=== PATIENT | male | born 1950 | race Two or more races ===

== ENCOUNTER 2019-09-27 11:54 | Inpatient (IN) | payer OTHER, MEDICAID ==
[~2019-09-27] VITALS: Ht 177.8 cm; Wt 74.4 kg
--- NOTE | 2019-09-27 12:00 | NUR ---
PT CAME FROM SNF, SENT BY PMD FOR POSSIBLE R SHOULDER DISCLOCATION. PT ALERT AND AWAKE, VSS, NO ACUTE DISTRESS NOTED. PT CONNECTED TO THE MONITOR AND POX.
[2019-09-27] MEDS ORDERED: PROPOFOL 20 ML IV ONE (12:33)
--- NOTE | 2019-09-27 12:45 | NUR ---
DR TOMLINSON, RT, RN, TECH AT BEDSIDE IN PREPARATION FOR THE PROCEDURE (R SHOULDER CLOSED REDUCTION UNDER MODERATE SEDATION. INFORMED CONSENT OBTAINED.
--- NOTE | 2019-09-27 12:48 | NUR ---
POST PROCEDURAL VITAL SIGNS 111/58 BP HR 63 BPM 21 RR 97% O2. 98.1 TEMP
--- NOTE | 2019-09-27 12:48 | NUR ---
EKG AT BEDSIDE
[2019-09-27] MEDS ORDERED: PROPOFOL 200 MG/20 ML VIAL IV ONE (13:00)
[2019-09-27 13:01] LABS: BASOPHILS # (AUTO) 0.1 /CMM (0.0-0.2); BASOPHILS % (AUTO) 0.7 % (0.0-2.0); EOSINOPHILS % (AUTO) 2.8 % (0.0-6.0); HEMATOCRIT 35 % (39-51); HEMOGLOBIN 11.5 g/dL (13.5-17.5); MEAN CORPUSCULAR HGB CONC 33 g/dl (31.0-36.0); MEAN CORPUSCULAR VOLUME 93 fL (80-96); MONOCYTES # (AUTO) 0.9 /CMM (0.1-1.30); MONOCYTES % (AUTO) 8.8 % (2.0-12.0); NEUTROPHILS # (AUTO) 6.8 /CMM (1.8-8.9); NEUTROPHILS % (AUTO) 67.7 % (43.0-81.0); PLATELET COUNT (AUTO) 236 /CMM (150-450); RED BLOOD CELL COUNT(AUTO) 3.71 MIL/uL (4.5-6.0)
[2019-09-27] MEDS ORDERED: ALBU2.5V38 IH ×2 (13:07)
[2019-09-27] MEDS ORDERED: ACET325T53 GT (13:07)
[2019-09-27] MEDS ORDERED: ACET-73 GT (13:07)
[2019-09-27] MEDS ORDERED: DEXT15DR6 RIGHTEYE (13:07)
[2019-09-27 13:10] LABS: CALCIUM, SERUM 8.6 mg/dL (8.5-10.1); CREATININE 0.7 mg/dL (0.6-1.3); POTASSIUM 3.8 mmol/L (3.5-5.1)
[2019-09-27] MEDS ORDERED: DULO30CA2 GT (13:11)
[2019-09-27] MEDS ORDERED: CARV25TA2 GT (13:11)
[2019-09-27] MEDS ORDERED: DOCU50LI GT (13:11)
[2019-09-27] MEDS ORDERED: CHLO473M3 BC (13:11)
[2019-09-27] MEDS ORDERED: CLOP75TA15 GT (13:11)
[2019-09-27] MEDS ORDERED: BISA10SU11 RC (13:12)
--- NOTE | 2019-09-27 13:13 | NUR ---
PT ALERT AND AWAKE. VITAL SIGNS STABLE. BREATHING EVEN AND UNLABORED W/ NO ACUTE DISTRESS NOTED.
[2019-09-27] MEDS ORDERED: OMEG-105 GT (13:14)
[2019-09-27] MEDS ORDERED: FAMO20TA8 GT (13:14)
[2019-09-27] MEDS ORDERED: NA P133E RC (13:14)
[2019-09-27] MEDS ORDERED: INSU100V39 SQ (13:20)
[2019-09-27] MEDS ORDERED: LEVE100S2 GT (13:20)
[2019-09-27] MEDS ORDERED: NUTR1PAC14 GT (13:20)
[2019-09-27] MEDS ORDERED: INSU3INS9 SQ (13:20)
[2019-09-27] MEDS ORDERED: MULT9LIQ6 PO (13:24)
[2019-09-27] MEDS ORDERED: LISI-603 GT (13:24)
[2019-09-27] MEDS ORDERED: ASCO-310 GT (13:27)
[2019-09-27] MEDS ORDERED: MAGN2400 GT (13:27)
[2019-09-27] MEDS ORDERED: SPIR25TA6 GT (13:27)
[2019-09-27] MEDS ORDERED: OXYC-128 GT (13:27)
[2019-09-27] MEDS ORDERED: AMIN30LI27 GT (13:27)
[2019-09-27] MEDS ORDERED: ASCO-340 (13:27)
[2019-09-27] MEDS ORDERED: LANSOPRAZOLE SUSP GT (13:30)
--- NOTE | 2019-09-27 14:22 | NUR ---
NURSING SUP GAVE 315-2.
[2019-09-27] MEDS ORDERED: [UNRECOGNIZED DRUG - REMARK] GT (14:27)
[2019-09-27] MEDS ORDERED: MAG HYDROX/AL HYDROX/SIMETH 30 ML UDC PO PRN (14:30)
[2019-09-27] MEDS ORDERED: ACETAMINOPHEN 325 MG TABLET PO PRN (14:30)
[2019-09-27] MEDS ORDERED: Z GUARD REMEDY 2 OZ OINT TP PRN (14:30)
[2019-09-27] MEDS ORDERED: MAGNESIUM HYDROXIDE 30 ML UDC PO PRN (14:30)
[2019-09-27] MEDS ORDERED: HYDROCODONE/APAP 5/325MG 1 EACH TABLET PO PRN (14:30)
[2019-09-27] MEDS ORDERED: NA PHOS,M-B/NA PHOS,DI-BA 1 EA ENEMA RC SCH (14:30)
[2019-09-27] MEDS ORDERED: DEXTROSE 50%-WATER 50 ML DISP.SYRIN IV PRN (14:30)
[2019-09-27] MEDS ORDERED: ONDANSETRON HCL/PF 4 MG/2 ML VIAL IVP PRN (14:30)
[2019-09-27] MEDS ORDERED: BISACODYL SUPP (10 MG) 10 MG/SUPP.RECT SUPP.RECT RC SCH (14:30)
--- NOTE | 2019-09-27 14:36 | NUR ---
REPORT GIVEN TO KAMAR WATSON
[2019-09-27] MEDS ORDERED: BISACODYL SUPP (10 MG) 10 MG/SUPP.RECT SUPP.RECT RC PRN (14:50)
[2019-09-27] MEDS ORDERED: NA PHOS,M-B/NA PHOS,DI-BA 1 EA ENEMA RC PRN (14:50)
[2019-09-27] MEDS ORDERED: MAGNESIUM HYDROXIDE 30 ML UDC GT PRN (14:56)
[2019-09-27] MEDS ORDERED: MAG HYDROX/AL HYDROX/SIMETH 30 ML UDC GT PRN (14:56)
[2019-09-27] MEDS: PROSOURCE / PROSTAT (PYXIS) 30 ML UDC GT SCH (15:00)
[2019-09-27] MEDS ORDERED: ACETAMINOPHEN 650 MG/20.3 ML UDC GT PRN (15:00)
--- NOTE | 2019-09-27 15:42 | NUR ---
PT TRANSFERRED TO BED 314-2 IN STABLE CONDITION
[2019-09-27 16:00] VITALS: BP 133/71
--- NOTE | 2019-09-27 16:00 | NUR ---
ADMISSION NOTE PT WAS BROUGHT UP AT THIS TIME VIA GURNEY, AWAKE AND ALERT BUT NONVERBAL BUT ABLE TO NOD HEAD TO QUESTIONS, NOTED TO HAVE TRACH PROTEX 7 AND GTUBE SITE, LEFT WRIST IV IS PATENT AND INTACT, SKIN NOTED TO BE DRY AND INTACT WITH GTUBE SITE AND TRACH SITE ALSO DRY AND INTACT, PT IS BREATHING EVEN AND UNLABORED AND CURRENTLY ON 2L TO THE TRACH AND SATING AT 97%, NO S/S OF ANY DISTRESS OR PAIN AT THIS TIME, PT NOTED TO BE NONAMBULATORY AND ONLY ABLE TO NOD HEAD, SAFETY PRECAUTIONS IN PLACE, CALL LIGHT IN REACH, WILL MONITOR ACCORDINGLY.
[2019-09-27] MEDS ORDERED: ARGININE/GLUTAMINE/CALCIUM BMB 1 EACH POWD.PACK GT SCH (17:00)
[2019-09-27] MEDS ORDERED: ALBUTEROL FS 2.5 MG/3 ML VIAL.NEB IH PRN (17:00)
[2019-09-27] MEDS: CHLORHEXIDINE GLUCONATE 15 ML UDC MM SCH (17:14)
[2019-09-27] MEDS: LEVETIRACETAM SOL (5 ML) 100 MG/ML UDC GT SCH (17:15)
[2019-09-27] MEDS: LISINOPRIL (20MG) 20 MG TABLET GT SCH (17:15)
[2019-09-27] MEDS: FAMOTIDINE (20 MG) 20 MG TABLET GT SCH (17:15)
[2019-09-27] MEDS: DOCUSATE SODIUM LIQ 100 MG/10 ML UDC GT SCH (17:15)
[2019-09-27] MEDS: BLOOD SUGAR DIAGNOSTIC 1 EACH STRIP IN SCH ×2 (17:37→22:27)
[2019-09-27] MEDS: INSULIN REGULAR, HUMAN 100 UNIT/ML 3 ML VIAL SQ PRN (17:38)
[2019-09-27] MEDS: ALBUTEROL FS 2.5 MG/3 ML VIAL.NEB IH SCH ×2 (18:00→23:26)
--- NOTE | 2019-09-27 18:37 | NUR ---
RN CLOSING NOTE PT IN BED AT LOWEST AND LOCKED POSITION WITH SIDE RAILS UP X2, AWAKE AND ALERT NONVERBAL BUT NODS HEAD TO ANSWER QUESTION, BREATHING EVEN AND UNLABORED VIA TRACH ON 2L VIA NC, NO S/S OF ANY PAIN OR DISTRESS AT THIS TIME, IV IS PATENT AND INTACT, RIGHT ARM IN SLING DUE TO SHOULDER DISLOCATION, GTUBE IS PATENT AND INTACT WITH MINIMAL RESIDUAL OF 20 ML, PALN FOR SHOULDER REDUCTION WITH ORTHO, SAFETY PRECAUTIONS IN PLACE, CALL LIGHT IN REACH, WILL ENDORSE TO NIGHT RN FOR SUJEY.
--- NOTE | 2019-09-27 19:50 | NUR ---
RN OPENING NOTES RECEIVED REPORT FROM LAURYN COSTA. Pt WAS JUST ADMITTED TODAY DURING THE DAY FROM [facility]. Pt IS HERE DUE TO RT SHOULDER DISLOCATION. Pt HAS A TACH; PORTEX #7. Pt IS NONVERBAL, BUT IS AWAKE AND ALERT ENOUGH TO ANSWER YES OR NO QUESTIONS BY NODDING. Pt IS GEORGIAN SPEAKING ONLY. IV ACCESS ON LWRIST #18G, SL. PEG TUBE IN PLACE, CLAMPED. CURRENTLY NPO PER ADMITTING ORDERS. WAITING FOR ORTHO CONSULT FOR Pt. SAFETY MEASURES IN PLACE. BED LOW, LOCKED, HOB ELEVATED, & SIDE RAILS UP. WILL CONTINUE TO MONITOR Pt's CONDITION AND SAFETY THROUGHOUT THE NIGHT.
[2019-09-27 20:00] VITALS: BP 148/77
[2019-09-27] MEDS ORDERED: NUT.250L18 PO (20:36)
--- NOTE | 2019-09-27 21:00 | NUR ---
EDMUND DAVILA (DAUGHTER): CELL - [place] -
[2019-09-27] MEDS: MORPHINE SULFATE INJ 2 MG/ML DISP.SYRIN IV PRN (21:13)
[2019-09-27] MEDS: INSULIN GLARGINE, 100 UNIT/ML CARTRIDGE SQ SCH (22:00)
--- NOTE | 2019-09-27 22:00 | NUR ---
RN NOTES PER ADMITTING HOSPITALIST, JOSUÉ HUFFMAN, Pt's GTF WAS HELD AND PLACED NPO FOR NOW, BUT DID NOT EXPLAIN IN HIS H&P WHY Pt WAS PLACED NPO. PER CXR RESULT THERE IS A "MILD DISTENTION ON THE UPPER ABD'L BOWEL LOOPS. IF THERE IS CONCERN FOR BOWEL OBSTRUCTION, CONSIDER ABD'L SERIES." INFORMED PM SQUAD LEADER HOSPITALIST RHIANNA CONNER, OF THE RESULTS, SAID TO KEEP Pt NPO FOR NOW. NO FURTHER TESTS ORDERED AT THIS TIME. WILL CONTINUE TO MONITOR.
--- NOTE | 2019-09-27 22:34 | NUR ---
RN NOTES BG 217. Pt IS CURRENTLY NPO. NO INSULIN ADMINISTERED AT THIS TIME.
--- NOTE | 2019-09-27 23:25 | NUR ---
NO ENDORSEMENT GIVEN ABOUT PATIENT DURING SHIFT CHANGE. Addendum: 09/27/19 at 0775 by SOLITARIO SINGER RT Amended: Links added.
--- NOTE | 2019-09-27 23:35 | NUR ---
RN NOTES PLACED Pt ON COOL AEROSOL 28%
[2019-09-28] MEDS: MORPHINE SULFATE INJ 2 MG/ML DISP.SYRIN IV PRN ×4 (01:22→22:15)
[2019-09-28] MEDS: ALBUTEROL FS 2.5 MG/3 ML VIAL.NEB IH SCH ×3 (05:24→18:13)
--- NOTE | 2019-09-28 06:15 | NUR ---
RN NOTES RT SUGGESTED TO DO ABG ON Pt DUE TO Pt's LOW 02 SATURATION EVEN AFTER DOING SUCTIONING AND BREATHING TREATMENT AND INCREASING COOL AEROSOL TO 40%, Pt WAS ONLY SATING HIGHEST AT 90%. INFORMED FANCY PACKER DALILA, SAID OK TO PLACE STAT ABG ON Pt. WILL CARRY OUT ORDER. RT AT BEDSIDE READY FOR ABG DRAW.
[2019-09-28] MEDS: BLOOD SUGAR DIAGNOSTIC 1 EACH STRIP IN SCH ×4 (06:33→22:11)
[2019-09-28 06:36] LABS: ABG BASE EXCESS 2.4 mmol/L; ABG OXYGEN SATURATION 97.1 % (92.0-98.5); ABG PCO2 30.2 mmHg (35.0-45.0); ABG PH 7.527 (7.350-7.450); ABG PO2 88.3 mmHg (75.0-100.0); AaDO2 162.2 mmHg; COHb 0.9 % (0.5-1.5); MetHb 0.4 % (0.0-1.5); O2Hb 95.8 % (94.0-97.0); SITE, ABG Left Radial; VENT MODE, BG COOL AEROSOL 40%
--- NOTE | 2019-09-28 06:37 | NUR ---
RN NOTES BG 213. NO INSULIN COVERAGE GIVEN AT THIS TIME DUE TO Pt BEING NPO STATUS.
--- NOTE | 2019-09-28 06:52 | NUR ---
RN CLOSING NOTES NO OTHER CHANGES IN Pt's CONDITION. ABG RESULTS SHOWED NOTHING CRITICAL. pCO2 30.2L & ABG pH 7.527H. Pt REMAINS ON COOL AEROSOL 40% O2 SAT @91%. ALL NEEDS MET AND ATTENDED TO. SAFETY MEASURES IN PLACE. PENDING ORTHO CONSULT TODAY. Pt IS RESTING COMFORTABLY IN BED. NO SIGNS OF PAIN NOTED. RT SLING ON RT ARM IN PLACE. WILL ENDORSE TO DAYSHIFT RN FOR Pt's SUJEY.
[2019-09-28 06:55] LABS: BASOPHILS % (AUTO) 0.2 % (0.0-2.0); EOSINOPHILS % (AUTO) 0.7 % (0.0-6.0); HEMATOCRIT 36 % (39-51); HEMOGLOBIN 11.8 g/dL (13.5-17.5); LYMPHOCYTES # (AUTO) 1.6 /CMM (0.8-4.8); LYMPHOCYTES % (AUTO) 11.2 % (20.0-44.0); MEAN CORPUSCULAR HGB CONC 33 g/dl (31.0-36.0); MEAN CORPUSCULAR VOLUME 93 fL (80-96); MONOCYTES % (AUTO) 6.6 % (2.0-12.0); NEUTROPHILS # (AUTO) 11.7 /CMM (1.8-8.9); NEUTROPHILS % (AUTO) 81.3 % (43.0-81.0); PLATELET COUNT (AUTO) 260 /CMM (150-450); RED BLOOD CELL COUNT(AUTO) 3.87 MIL/uL (4.5-6.0); WHITE BLOOD COUNT (AUTO) 14.5 K/uL (4.3-11.0)
--- NOTE | 2019-09-28 06:57 | NUR ---
PATIENT RECEIVED LATE ADMISSION AND PLACED ON 28% AEROSOL T-TUBE. SUCTIONED FOR MODERATE, THIN, YELLOW SECRETIONS. GIVEN IN-LINE TREATMENTS WITH NO ADVERSE REACTIONS. INCREASED FiO2 TO 40% DUE TO LOW SaO2. ABG OBTAINED AND RELAYED RESULTS TO RN. Addendum: 09/28/19 at 0659 by SOLITARIO SINGER RT Amended: Links added.
[2019-09-28 07:07] LABS: THYROID STIMULATING HORMONE 8.809 uIU/mL (0.358-3.74)
[2019-09-28 07:26] LABS: CREATININE 0.7 mg/dL (0.6-1.3); PHOSPHORUS 3.4 mg/dL (2.5-4.9); POTASSIUM 4.4 mmol/L (3.5-5.1)
--- NOTE | 2019-09-28 07:30 | NUR ---
RN OPENING NOTES RECEIVED PATIENT IN BED RESTING AWAKE. NON VERBAL, TRACKS WITH EYES, NODS HEAD TO YES OR NO, LANGUAGE IS LITHUANIAN. TRACH PORTEX7 WITH T-PIECE AEROSOL. NOT IN ANY FORM OF DISTRESS. NO SOB. NO S/S OF PAIN OR DISCOMFORT. GTUBE IN PLACE, CLAMP. IV ACCESS INTACT AND PATENT. KEPT PATIENT SAFE AND COMFORTBALE. BED IN LOW/LOCKED POSITION, SIDERAILS UPX2, CALL LIGHT IN REACH. WILL CONTINUE TO MONIOTR ACCORIDNGLY.
[2019-09-28 08:00] VITALS: BP 112/60
[2019-09-28] MEDS ORDERED: EPA GT SCH (09:00)
[2019-09-28] MEDS ORDERED: D3 GT SCH (09:00)
[2019-09-28] MEDS ORDERED: OMEGA GT SCH (09:00)
[2019-09-28] MEDS ORDERED: DHA GT SCH (09:00)
[2019-09-28] MEDS ORDERED: FISH OIL GT SCH (09:00)
[2019-09-28] MEDS ORDERED: [UNRECOGNIZED DRUG - OTHER] GT SCH (09:00)
[2019-09-28] MEDS: DULOXETINE HCL 30 MG CAPSULE.DR GT SCH (10:09)
[2019-09-28] MEDS: FAMOTIDINE (20 MG) 20 MG TABLET GT SCH ×2 (10:10→17:05)
[2019-09-28] MEDS: PANTOPRAZOLE 40 MG/PACK PACK GT SCH (10:10)
[2019-09-28] MEDS: SPIRONOLACTONE 25 MG TABLET GT SCH (10:10)
[2019-09-28] MEDS: CLOPIDOGREL BISULFATE 75 MG TABLET GT SCH (10:10)
[2019-09-28] MEDS: MULTIVIT W/MINERALS 1 TAB TABLET GT SCH (10:10)
[2019-09-28] MEDS: CARVEDILOL 12.5 MG TABLET GT SCH (10:11)
[2019-09-28] MEDS: LISINOPRIL (20MG) 20 MG TABLET GT SCH ×2 (10:12→17:06)
[2019-09-28] MEDS: ASCORBIC ACID 500 MG TABLET GT SCH (10:12)
[2019-09-28] MEDS: CHLORHEXIDINE GLUCONATE 15 ML UDC MM SCH ×2 (10:13→17:05)
[2019-09-28] MEDS: DOCUSATE SODIUM LIQ 100 MG/10 ML UDC GT SCH ×2 (10:13→17:07)
[2019-09-28] MEDS: LEVETIRACETAM SOL (5 ML) 100 MG/ML UDC GT SCH ×2 (10:13→17:06)
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
[2019-09-28] MEDS: PROSOURCE / PROSTAT (PYXIS) 30 ML UDC GT SCH (11:34)
--- NOTE | 2019-09-28 13:00 | NUR ---
RN NOTES CONSULTED WITH DERMATOLOGY SPECIALIST REGARDING TUBE FEEDING FORMULA. DIABETISOURCE 1.2 WAS USED IN LONG TERM. PER DERMATOLOGY SPECIALIST, GLUCERNA 1.2 IS THE SUBSTITUTE.
[2019-09-28 13:03] LABS: APPEARANCE,URINE CLOUDY (CLEAR); COLOR,URINE YELLOW (YELLOW); PROTEIN,URINE 30 mg/dl (NEGATIVE)
[2019-09-28 13:04] LABS: UGLUCOSE NEGATIVE (NEGATIVE)
[2019-09-28 13:05] LABS: BILIRUBIN,URINE SMALL (NEGATIVE); BLOOD, URINE SMALL Ery/uL (NEGATIVE)
[2019-09-28 13:06] LABS: KETONES,URINE TRACE (NEGATIVE); LEUKOCYTE ESTERASE ,URINE LARGE (NEGATIVE); NITRITE, URINE NEGATIVE (NEGATIVE)
[2019-09-28 13:15] LABS: BACTERIA,URINE Few /HPF (None Seen); SQUAMOUS EPITHELIAL CELL,UR Few /HPF (None Seen); WBC,URINE TOO NUMEROUS TO COUN /HPF (0-3)
[2019-09-28] MEDS: INSULIN REGULAR, HUMAN 100 UNIT/ML 3 ML VIAL SQ PRN ×3 (14:38→22:43)
[2019-09-28] MEDS: GLUCERNA 1.2 1,000 ML BOTTLE GT PRN (14:42)
[2019-09-28] MEDS ORDERED: CEFTRIAXONE 1 G in IV D5W 50 ML IV SCH (15:00)
[2019-09-28 16:12] VITALS: BP 137/66
--- NOTE | 2019-09-28 18:44 | NUR ---
RN CLOSING NOTES PATIENT IN STABLE CONDITION. NO SIGNIFICANT CHANGE OF CONDITION DURING THE SHIFT. ALL NEEDS ATTENDED AND PROVIDED. ALL DUE MEDS GIVEN ORDERED. TURNED AND REPOSITIONED PATIENT EVERY 2HRS NEEDED. SUCTIONED PATIENT'S TRACH NEEDED, TRACH CARE DONE. MOUTH CARE DONE. ON GTF AT 60ML/HR, FEEDING TOLERATING WELL WITH 5ML RESIDUAL. KEPT PATIENT CLEAN AND DRY. SAFETY MEASURES IN PLACE. WILL ENDORSED TO NIGHT RN FOR SUJEY.
--- NOTE | 2019-09-28 19:40 | NUR ---
RN OPENING NOTES RECEIVED REPORT FROM LAURYN GRAYSON. RT SHOULDER REDUCTION WAS NOT DONE TODAY, MOST LIKELY WILL BE DONE TOMORROW. Pt HAS A TACH; PORTEX #7 ON COL AEROSOL 40%. Pt IS NONVERBAL, BUT IS AWAKE AND ALERT ENOUGH TO ANSWER YES OR NO QUESTIONS BY NODDING. Pt IS CHILEAN SPEAKING BUT UNDERSTANDS SOME ROMANIAN. IV ACCESS ON LWRIST #18G, SL. PEG TUBE IN PLACE, GTF ON GLUCERNA 1.2 @60ML/HR X20HR. SAFETY MEASURES IN PLACE. BED LOW, LOCKED, HOB ELEVATED, & SIDE RAILS UP. WILL CONTINUE TO MONITOR Pt's CONDITION AND SAFETY THROUGHOUT THE NIGHT.
[2019-09-28 20:17] VITALS: BP 122/63
[2019-09-28] MEDS: INSULIN GLARGINE, 100 UNIT/ML CARTRIDGE SQ SCH (22:20)
--- NOTE | 2019-09-28 22:30 | NUR ---
RN NOTES BG 236. ADMINISTERED SCHEDULED LANTUS 25UN & 4UN OF REGULAR INSULIN PER SLIDING SCALE. Pt IS ON GTF.
[2019-09-29] MEDS: ALBUTEROL FS 2.5 MG/3 ML VIAL.NEB IH SCH ×5 (00:09→19:21)
[2019-09-29] MEDS: BLOOD SUGAR DIAGNOSTIC 1 EACH STRIP IN SCH ×4 (06:33→22:16)
[2019-09-29] MEDS: INSULIN REGULAR, HUMAN 100 UNIT/ML 3 ML VIAL SQ PRN ×4 (06:37→22:34)
--- NOTE | 2019-09-29 06:40 | NUR ---
RN NOTES AC ACCUCHECK BG 230. ADMINISTERED 4UN OF INSULIN PER SLIDING SCALE. ON GTF.
--- NOTE | 2019-09-29 06:50 | NUR ---
RN CLOSING NOTES NO SIGNIFICANT CHANGES IN Pt's CONDITION. ALL NEEDS MET AND ATTENDED TO. SAFETY MEASURES IN PLACE. Pt ON COOL AEROSOL 40% O2SAT @94%. Pt TOLERATING GTF WELL; RESIDUAL OF 10ML. GTUBE FLUSHED & PATENT. NO S/S OF ACUTE DISTRESS OR SOB NOTED DURING THE NIGHT. WILL ENDORSE TO DAYSHIFT RN FOR Pt's SUJEY.
--- NOTE | 2019-09-29 07:20 | NUR ---
MS RN OPENING NOTES RECEIVED PT IN BED, AWAKE. A/O X1, NON-VERBAL, BUT PT CAN TRACKS AND NODS WITH YES OR NO. PT HAS TRACH PORTEX7 ON COOL AEROSOL 40%, WITH NO ACUTE RESPIRATORY DISTRESS NOTED. PT DENIES ANY PAIN OR DISCOMFORT AT THIS TIME. ALSO DENIES CONCERNS OR QUESTIONS AT THIS MOMENT. PIV TO LFA G22, FLUSHED WITH NS, INTACT AND OPERATIONAL. PT KEPT COMFORTABLE. CALL LIGHT KEPT WITHIN REACH. HOB KEPT ELEVATED. PT'S BED IN LOWEST, LOCKED POSITION WITH SR X3. WILL CONTINUE TO PLAN OF CARE.
[2019-09-29 07:22] LABS: BASOPHILS % (AUTO) 0.3 % (0.0-2.0); EOSINOPHILS % (AUTO) 2.5 % (0.0-6.0); HEMATOCRIT 34 % (39-51); HEMOGLOBIN 11.2 g/dL (13.5-17.5); LYMPHOCYTES # (AUTO) 1.7 /CMM (0.8-4.8); MEAN CORPUSCULAR HGB CONC 33 g/dl (31.0-36.0); MEAN CORPUSCULAR VOLUME 93 fL (80-96); MONOCYTES # (AUTO) 0.9 /CMM (0.1-1.30); MONOCYTES % (AUTO) 6.9 % (2.0-12.0); NEUTROPHILS # (AUTO) 10.4 /CMM (1.8-8.9); NEUTROPHILS % (AUTO) 77.3 % (43.0-81.0); PLATELET COUNT (AUTO) 249 /CMM (150-450); RED BLOOD CELL COUNT(AUTO) 3.65 MIL/uL (4.5-6.0); WHITE BLOOD COUNT (AUTO) 13.5 K/uL (4.3-11.0)
--- NOTE | 2019-09-29 07:25 | NUR ---
RN NOTES IV ON LWRIST DISLODGED. STARTED NEW IV ACCESS ON LFA #22G.
[2019-09-29 07:50] LABS: CALCIUM, SERUM 8.7 mg/dL (8.5-10.1); CREATININE 0.8 mg/dL (0.6-1.3); POTASSIUM 4.2 mmol/L (3.5-5.1)
[2019-09-29 08:00] VITALS: BP 137/71
[2019-09-29] MEDS: CHLORHEXIDINE GLUCONATE 15 ML UDC MM SCH ×2 (08:52→17:42)
[2019-09-29] MEDS: DULOXETINE HCL 30 MG CAPSULE.DR GT SCH (08:53)
[2019-09-29] MEDS: DOCUSATE SODIUM LIQ 100 MG/10 ML UDC GT SCH ×2 (08:53→17:41)
[2019-09-29] MEDS: LEVETIRACETAM SOL (5 ML) 100 MG/ML UDC GT SCH ×2 (08:53→17:41)
[2019-09-29] MEDS: CARVEDILOL 12.5 MG TABLET GT SCH (08:53)
[2019-09-29] MEDS: ASCORBIC ACID 500 MG TABLET GT SCH (08:53)
[2019-09-29] MEDS: FAMOTIDINE (20 MG) 20 MG TABLET GT SCH ×2 (08:53→17:41)
[2019-09-29] MEDS: MULTIVIT W/MINERALS 1 TAB TABLET GT SCH (08:54)
[2019-09-29] MEDS: LISINOPRIL (20MG) 20 MG TABLET GT SCH ×2 (08:54→17:00)
[2019-09-29] MEDS: PANTOPRAZOLE 40 MG/PACK PACK GT SCH (08:54)
[2019-09-29] MEDS: SPIRONOLACTONE 25 MG TABLET GT SCH (08:54)
[2019-09-29] MEDS: CLOPIDOGREL BISULFATE 75 MG TABLET GT SCH (08:54)
[2019-09-29] MEDS: PROSOURCE / PROSTAT (PYXIS) 30 ML UDC GT SCH (08:54)
[2019-09-29] MEDS ORDERED: FEE PK DOSING 1 MIN EA MC ONE (11:09)
[2019-09-29] MEDS: VANCOMYCIN 1 GM in IV D5W 250 ML IV SCH ×2 (12:41→19:58)
[2019-09-29] MEDS: GLUCERNA 1.2 1,000 ML BOTTLE GT PRN (13:13)
[2019-09-29] MEDS: CEFEPIME 2 GM in IV D5W 100 ML IV SCH ×2 (13:57→21:09)
[2019-09-29 15:57] VITALS: BP 98/52
--- NOTE | 2019-09-29 16:20 | NUR ---
MS RN NOTES HOSPITALIST/CN MADE AWARE OF FAMILY'S REQUEST FOR DISCHARGE TODAY. RN AND CN/ODIN EXPLAINED TO THE INSISTING DAUGHTER THE REASON WHY PT NEEDS TO STAY FOR ANOTHER DAY. AWAITING FOR HOSPITALIST/CN'S RESPONSE.
--- NOTE | 2019-09-29 17:20 | NUR ---
MS RN NOTES FAMILY PRESENT AT BEDSIDE WITH SURPRISE REPUBLICAN FOR THE PT.
--- NOTE | 2019-09-29 18:43 | NUR ---
MS RN CLOSING NOTES PT IN BED, AWAKE. A/O X1, NON-VERBAL, BUT PT CAN TRACKS AND NODS WITH YES OR NO. PT HAS TRACH PORTEX7 ON COOL AEROSOL 40%, WITH NO ACUTE RESPIRATORY DISTRESS NOTED. PT DENIES ANY PAIN OR DISCOMFORT AT THIS TIME. PIV TO LFA G22, FLUSHED WITH NS, INTACT AND OPERATIONAL. ALL NEEDS AND CARE ATTENDED. PT KEPT COMFORTABLE. CALL LIGHT KEPT WITHIN REACH. HOB KEPT ELEVATED. PT'S BED IN LOWEST, LOCKED POSITION WITH SR X3. WILL ENDORSE TO INCOMING NIGHT NURSE FOR SUJEY.
--- NOTE | 2019-09-29 19:30 | NUR ---
MS/RN OPENING NOTES: RECEIVED PATIENT BED, AWAKE, NON VERBAL. FAMILY IS PRESENT AT THE BED SIDE. A/O X1, BUT TRACKS VERBAL COMMANDS AND NODS WITH YES OR NO. PT HAS TRACH PORTEX7 ON COOL AEROSOL 40%, NO SOB NOTED, NO ACUTE RESPIRATORY DISTRESS NOTED. PATIENT HAS NO COMPLAINS OF ANY PAIN OR DISCOMFORT AT THIS TIME. NO CONCERNS OR QUESTIONS AT THIS MOMENT. PIV LOCATED AT THE LFA G22, FLUSHED WITH NS, INTACT AND PATENT. PATIENT KEPT WARM COMFORTABLE IN BED AT THIS TIME. CALL LIGHT IS WITHIN PATIENT'S REACH. HOB KEPT ELEVATED. SAFETY MEASURES ARE IN PLACE. PT'S BED IN LOWEST, LOCKED POSITION WITH SR X3. WILL CONTINUE TO MONITOR PATIENT ACCORDINGLY.
[2019-09-29 20:00] VITALS: BP 112/58
[2019-09-29] MEDS: INSULIN GLARGINE, 100 UNIT/ML CARTRIDGE SQ SCH (22:19)
[2019-09-30] MEDS: ALBUTEROL FS 2.5 MG/3 ML VIAL.NEB IH SCH ×3 (01:29→13:52)
[2019-09-30] MEDS: VANCOMYCIN 1 GM in IV D5W 250 ML IV SCH ×2 (03:58→12:15)
[2019-09-30] MEDS: CEFEPIME 2 GM in IV D5W 100 ML IV SCH ×2 (04:59→13:59)
[2019-09-30] MEDS: BLOOD SUGAR DIAGNOSTIC 1 EACH STRIP IN SCH ×2 (06:35→12:04)
[2019-09-30] MEDS: INSULIN REGULAR, HUMAN 100 UNIT/ML 3 ML VIAL SQ PRN ×2 (06:37→12:14)
--- NOTE | 2019-09-30 06:43 | NUR ---
MS/RN CLOSING NOTES: NO SIGNIFICANT CHANGES IN Pt's CONDITION. ALL NEEDS MET AND ATTENDED TO. SAFETY MEASURES KEPT IN PLACE. Pt ON COOL AEROSOL 40% O2SAT @95%. Pt TOLERATING GTF WELL; GTUBE FLUSHED & PATENT. ALL DUE MEDICATIONS GIVEN ORDERED. NO S/S OF ACUTE DISTRESS OR SOB NOTED DURING THE NIGHT. WILL ENDORSE TO DAYSHIFT RN FOR Pt's SUJEY.
--- NOTE | 2019-09-30 08:00 | NUR ---
MS RN OPENING NOTES Received Patient awake and resting in bed. A/O x 1, nonverbal. VS stable with no acute distress. Breathing even and unlabored on Cool Aerosol with SPO2 99%. No signs and symptoms of pain. 22g PIV on LFA clean, intact, patent and flushing well. Gtube clean, intact, patent and in place. Right arm sling in place. Safety precautions in place. Bed locked and set to lowest position with side rails x 2 up. All needs rendered at this time. Call light within reach. Will continue to monitor.
[2019-09-30 08:10] VITALS: BP 117/60
[2019-09-30 08:11] LABS: BASOPHILS % (AUTO) 0.4 % (0.0-2.0); EOSINOPHILS % (AUTO) 3.8 % (0.0-6.0); HEMATOCRIT 35 % (39-51); HEMOGLOBIN 11.6 g/dL (13.5-17.5); LYMPHOCYTES # (AUTO) 1.8 /CMM (0.8-4.8); LYMPHOCYTES % (AUTO) 16.8 % (20.0-44.0); MEAN CORPUSCULAR HGB CONC 33 g/dl (31.0-36.0); MEAN CORPUSCULAR VOLUME 94 fL (80-96); MONOCYTES # (AUTO) 0.6 /CMM (0.1-1.30); MONOCYTES % (AUTO) 5.8 % (2.0-12.0); NEUTROPHILS # (AUTO) 7.9 /CMM (1.8-8.9); NEUTROPHILS % (AUTO) 73.2 % (43.0-81.0); PLATELET COUNT (AUTO) 263 /CMM (150-450); RED BLOOD CELL COUNT(AUTO) 3.77 MIL/uL (4.5-6.0); WHITE BLOOD COUNT (AUTO) 10.8 K/uL (4.3-11.0)
[2019-09-30 08:25] LABS: CALCIUM, SERUM 8.8 mg/dL (8.5-10.1); CREATININE 0.8 mg/dL (0.6-1.3)
[2019-09-30] MEDS: PROSOURCE / PROSTAT (PYXIS) 30 ML UDC GT SCH (09:00)
[2019-09-30] MEDS: DOCUSATE SODIUM LIQ 100 MG/10 ML UDC GT SCH (09:51)
[2019-09-30] MEDS: SPIRONOLACTONE 25 MG TABLET GT SCH (09:51)
[2019-09-30] MEDS: LEVETIRACETAM SOL (5 ML) 100 MG/ML UDC GT SCH (09:52)
[2019-09-30] MEDS: DULOXETINE HCL 30 MG CAPSULE.DR GT SCH (09:52)
[2019-09-30] MEDS: CARVEDILOL 12.5 MG TABLET GT SCH (09:52)
[2019-09-30] MEDS: CLOPIDOGREL BISULFATE 75 MG TABLET GT SCH (09:53)
[2019-09-30] MEDS: FAMOTIDINE (20 MG) 20 MG TABLET GT SCH (09:53)
[2019-09-30 09:54] VITALS: BP 117/60
[2019-09-30] MEDS: MULTIVIT W/MINERALS 1 TAB TABLET GT SCH (09:54)
[2019-09-30] MEDS: CHLORHEXIDINE GLUCONATE 15 ML UDC MM SCH (09:54)
[2019-09-30] MEDS: ASCORBIC ACID 500 MG TABLET GT SCH (09:54)
[2019-09-30] MEDS: PANTOPRAZOLE 40 MG/PACK PACK GT SCH (09:54)
[2019-09-30] MEDS: LISINOPRIL (20MG) 20 MG TABLET GT SCH (09:54)
[2019-09-30] MEDS ORDERED: CEFE2PIG2 IV (12:04)
[2019-09-30] MEDS ORDERED: RXVAN XX (12:04)
[2019-09-30] MEDS ORDERED: VANC1PLA9 IV (12:04)
--- NOTE | 2019-09-30 16:55 | NUR ---
MS BUSINESS INTELLIGENCE MANAGER NOTES Patient discharged to [facility] at this time. Patient in stable condition. VS stable with no acute distress. Breathing even and unlabored on trachea and cool aerosol with SPO2 99% Skin assessment pictures taken and placed in chart. 22g PIV on LFA clean, intact and flushing well. Patient will resume and complete IV ABX at SNF. Trachea clean, intact and patent. RT at bedside during transport. GTube clean, intact, patent and flushing well. Medication reconciliation and discharge orders reviewed and explained to Patient. Patient nodded "yes" to understanding but unable to sign paperwork. All belongings with Patient. Patient will follow up with PCP at SNF and will resume and complete IV ABX. Patient picked up by [facility].
== END 2019-09-30 17:00 | DRG 562 ==
LOC: ER 11:57 → MED 14:35
PROVIDERS: ADMIT Nurse Practitioner Acute Care; ATTEND Nurse Practitioner Acute Care
DX: S43.014A Anterior dislocation of right humerus, initial encounter (principal); J15.9 Unspecified bacterial pneumonia; R53.2 Functional quadriplegia; J96.10 Chronic respiratory failure, unspecified whether with hypoxia or hypercapnia; E87.1 Hypo-osmolality and hyponatremia; I69.354 Hemiplegia and hemiparesis following cerebral infarction affecting left non-dominant side; N39.0 Urinary tract infection, site not specified; J98.11 Atelectasis; I42.9 Cardiomyopathy, unspecified; M80.012 Age-related osteoporosis with current pathological fracture, left shoulder; X58.XXXA Exposure to other specified factors, initial encounter; Y92.9 Unspecified place or not applicable; R13.10 Dysphagia, unspecified; E11.42 Type 2 diabetes mellitus with diabetic polyneuropathy; E03.9 Hypothyroidism, unspecified; D64.9 Anemia, unspecified; E78.5 Hyperlipidemia, unspecified; H54.61 Unqualified visual loss, right eye, normal vision left eye; I11.0 Hypertensive heart disease with heart failure; I50.9 Heart failure, unspecified; K21.9 Gastro-esophageal reflux disease without esophagitis; Z93.1 Gastrostomy status; Z93.0 Tracheostomy status; Z74.01 Bed confinement status; Z79.4 Long term (current) use of insulin; Y95 Nosocomial condition; Z79.899 Other long term (current) drug therapy; Z79.01 Long term (current) use of anticoagulants; Z79.51 Long term (current) use of inhaled steroids; Y92.129 Unspecified place in nursing home as the place of occurrence of the external cause; D63.8 Anemia in other chronic diseases classified elsewhere; M62.40 Contracture of muscle, unspecified site
CPT/HCPCS: 31720; 36415; 36600; 71045-TC; 73020; 80048-TC; 80061-TC; 80202-TC; 81000-TC; 82803-TC; 82962-TC; 83735-TC; 84100-TC; 84443-TC; 85025-TC; 85730-TC; 87040-TC; 87081-TC; 87086-TC; 94640-TC; 94760-TC; 94799-TC; A4623; G0378; G0500; J0692; J0696; J1815; J1953; J2270; J2405; J2704; J3370; J7050; J7060

== ENCOUNTER 2021-02-20 19:10 | Emergency (ER) | payer MEDICARE, OTHER ==
[~2021-02-20] VITALS: Ht 177.8 cm; Wt 74.4 kg
[~2021-02-20 19:10] MED LIST: ACET-73 GT; ACET325T53 GT; ALBU2.5V38 IH; AMIN30LI27 GT; ASCO-310 GT; ASCO-340; BISA10SU11 RC; CARV25TA2 GT; CEFE2PIG2 IV; CHLO473M3 BC; CLOP75TA15 GT; DOCU50LI GT; DULO30CA2 GT; FAMO20TA8 GT; INSU100V39 SQ; INSU3INS9 SQ; LANSOPRAZOLE SUSP GT; LEVE100S2 GT; LISI20TA30 GT; MAGN24002 GT; MULT9LIQ6 PO; NA P133E RC; NUT.250L18 PO; NUTR1PAC14 GT; OMEG-105 GT; OXYC-128 GT; RXVAN XX; SPIR25TA6 GT; VANC1PLA9 IV; [UNRECOGNIZED DRUG - REMARK] GT
--- NOTE | 2021-02-20 19:10 | NUR ---
PT NON VERBAL, UNABLED TO COMPLETE EYE ASSESSMENT
--- NOTE | 2021-02-20 19:15 | NUR ---
PT BIBRA X/O RT EYE PAIN AND SWELLING WITH D/C X2 WEEKS. PT AAOX4, BUT NOT VERBAL, ABLE TO NOD HEAD TO ANSWER QUESTIONS. BREATHING EVENLY AND UNLABORED. PT ATTACHED TO MONITOR AND POX. GIVEN BLANKET AND CALL LIGHT WITHIN REACH
--- NOTE | 2021-02-20 20:46 | NUR ---
[facility] called for transport. Trip# [id number]
[2021-02-20] MEDS ORDERED: ERYTHROMYCIN BASE OPHTH 3.5 GM TUBE ONE (20:49)
[2021-02-20] MEDS ORDERED: ERYTHROMYCIN BASE OPHTH 3.5 GM TUBE OP ONE (21:00)
[2021-02-20] MEDS ORDERED: ERYT3.5O9 RIGHTEYE (21:06)
--- NOTE | 2021-02-20 21:57 | NUR ---
NO TRANSPORT ASSIGNED YET PER [employer]
--- NOTE | 2021-02-20 22:09 | NUR ---
[facility] ETA 0000
--- NOTE | 2021-02-20 23:42 | NUR ---
SPOKE TO KAMAR NORIEGA FOR SUJEY BACK TO FACILITY
--- NOTE | 2021-02-21 00:11 | NUR ---
GAVE REPORT TO EMS
[2021-02-21 00:28] VITALS: BP 108/70
== END 2021-02-20 23:30 ==
LOC: ER 19:11
DX: H11.31 Conjunctival hemorrhage, right eye (principal); I10 Essential (primary) hypertension; E78.5 Hyperlipidemia, unspecified; E11.9 Type 2 diabetes mellitus without complications; E03.9 Hypothyroidism, unspecified; K21.9 Gastro-esophageal reflux disease without esophagitis; Z86.16 Personal history of COVID-19; Z86.73 Personal history of transient ischemic attack (TIA), and cerebral infarction without residual deficits; Z90.89 Acquired absence of other organs; Z93.1 Gastrostomy status; Z91.040 Latex allergy status; Z88.8 Allergy status to other drugs, medicaments and biological substances; Z79.82 Long term (current) use of aspirin; Z79.4 Long term (current) use of insulin; Z79.899 Other long term (current) drug therapy
CPT/HCPCS: 99285; A6403